=== PATIENT | female | born 1945 | race Caucasian/White ===

== ENCOUNTER → 2017-10-24 | Day surgery (SDC) | payer OTHER, MEDICARE ==
[2017-10-23 11:56] LABS: BASOPHILS % 0.6 % (0.0-1.0); EOSINOPHILS # (AUTO) 0.2 (0.0-0.4); HEMATOCRIT 38.2 % (34.2-44.1); LYMPHOCYTES # (AUTO) 1.3 (1.0-3.2); LYMPHOCYTES % 25.7 % (18.0-39.1); MEAN CORPUSCULAR HEMOGLOBIN 30.2 pg (28-32); MEAN CORPUSCULAR HGB CONC 31.4 g/dL (31-35); MEAN CORPUSCULAR VOLUME 96.2 fL (81-99); MONOCYTES # (AUTO) 0.5 (0.2-0.8); MONOCYTES % 10.6 % (4.4-11.3); NEUTROPHILS % 59.9 % (38.7-80.0); PLATELET COUNT 198 x10e3/uL (140-360); RED BLOOD COUNT 3.97 x10e6/uL (3.6-5.1); RED CELL DISTRIBUTION WIDTH 12.8 % (11.7-14.4)
[2017-10-23 12:17] LABS: INR 1.04; PROTHROMBIN TIME 12.8 seconds (11.9-14.5)
[2017-10-23 12:18] LABS: PARTIAL THROMBOPLASTIN TIME 27.3 seconds (23.8-35.5)
[2017-10-23 12:25] LABS: ALANINE AMINOTRANSFERASE 25 IU/L (0-55); ALBUMIN 3.8 g/dL (3.5-5.0); ALBUMIN/GLOBULIN RATIO 1.4 (0.8-2.0); ALKALINE PHOSPHATASE 152 IU/L (40-150); ANION GAP 13.6 mmol/L (8-16); BLOOD UREA NITROGEN 19 mg/dL (7-26); BUN/CREATININE RATIO 24 (6-25); CALCIUM 9.3 mg/dL (8.4-10.2); CARBON DIOXIDE 25 mmol/L (22-29); CHLORIDE 109 mmol/L (98-107); CREATININE, SERUM 0.78 mg/dL (0.57-1.11); EST GLOMERULAR FILTRATION RATE > 60 ML/MIN (60-); GLUCOSE 83 mg/dL (74-118); POTASSIUM 4.6 mmol/L (3.5-5.1); SODIUM 143 mmol/L (136-145)
--- NOTE | 2017-10-23 12:41 | Diagnostic Imaging Report ---
PROCEDURE: X-RAY CHEST, TWO VIEWS COMPARISON: Chest x-ray 11/28/16. INDICATIONS: PRE-OP FINDINGS: LUNGS: Stable diffuse hyperinflation. No mass, consolidations or edema. PLEURA: Bilateral apical pleural parenchymal thickening is stable. No effusions or pneumothorax. HEART \T\ MEDIASTINUM: The heart is within normal size-limits. Aorta ectasia and aortic calcifications are stable. BONES \T\ SOFT TISSUES: Diffusely demineralized. No focal osseous lesions. Surgical clips in the right upper quadrant are stable. CONCLUSION: Stable pulmonary hyperinflation consistent with small airways disease. No acute cardiopulmonary process. Dictated by: Ilene Carr M.D. on 10/23/2017 at 12:42 Electronically approved by: Ilene Carr M.D. on 10/23/2017 at 12:42
[~2017-10-24] MED LIST: ACETAMINOPHEN 1000 MG/100 ML IV ONE; BOTULINUM TOXIN TYPE A 100 UNIT VIAL IM ONE; CEFOXITIN SOD 1 GM VIAL ONE; CIPROFLOXACIN250 MG PO; DEXAMETHASONE SOD PHOS INJ 4 MG/ML VIAL ONE; FENTANYL CITRATE/PF 100MCG/2 ML INJ ONE; FERROUS SULFAT325 M1 PO; LIDOCAINE HCL 2% LOCAL INJ 5 ML SDV VIAL INJ ONE; MACROBID 100 M100 MG PO; MACRODANTIN100 MG PO; MEPERIDINE HCL INJ 50 MG/ML INJ ONE; MULTI-VITAMIN1 EACH PO; MYRBETRIQ50 MG PO; ONDANSETRON HCL INJ 2 MG/ML VIAL ONE; PANTOPRAZOLE SO40 MG PO; POTASSIUM CHLO20 ME1 PO; PRESERVISION T1 EACH PO; PROPOFOL IV EMULSION 10 MG/ML 20 ML VIAL ONE; SEVOFLURANE INHAL SOLN 250 ML PEN BTL ONE; SODIUM CHLORIDE 0.9% INJ 10 ML VIAL ONE; TOLTERODINE TART2 MG PO; TYLENOL # 31 EA PO; VESICARE5 MG PO; VIT B12 PO; VITAMIN C500 M1 PO; [UNRECOGNIZED DRUG - OTHER] INJ ONE
--- OUTSIDE RECORDS SUMMARY | 2017-10-24 08:22 | XMS REPORT ---
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 Allergies, Adverse Reactions, Alerts This patient has no known allergies or adverse reactions. Medications This patient has no known medications. Results Test Description Test Time Test Comments Text Results Atomic Results Result Comments CHEST 2 VIEWS [place] [address] Patient Name: ISAIAH MAURER MR #: [id number] : 1945 Age/Sex: 72/F Req # : [id number] Adm Physician: Ordered by: MARIANGEL FRAUSTO MD Report #: [id number] Location: OR Room/Bed: Procedure: [id number] DX/CHEST 2 VIEWS Exam Date: 10/23/17 Exam Time: 1150 REPORT STATUS: Signed PROCEDURE: X-RAY CHEST, TWO VIEWS COMPARISON: Chest x-ray 11/28/16. INDICATIONS: PRE-OP FINDINGS: LUNGS: Stable diffuse hyperinflation. No mass, consolidations or edema. PLEURA: Bilateral apical pleural parenchymal thickening is stable. No effusions or pneumothorax. HEART T MEDIASTINUM: The heart is within normal size-limits. Aorta ectasia and aortic calcifications are stable. BONES T SOFT TISSUES: Diffusely demineralized. No focal osseous lesions. Surgical clips in the right upper quadrant are stable. CONCLUSION: Stable pulmonary hyperinflation consistent with small airways disease. No acute cardiopulmonary process. Dictated by: Sierra Carr M.D. on 10/23/2017 at 12:42 Electronically approved by: Sierra Carr M.D. on 10/23/2017 at 12:42 Dictated By: SIERRA CARR MD 124 Transcribed By: WILLA on 10/23/17 1242 COPY TO: MARIANGEL FRAUSTO MD
--- NOTE | 2017-10-24 13:02 | Operative Report ---
DATE OF PROCEDURE: October 24, 2017 PREOPERATIVE DIAGNOSIS: Urinary urgency incontinence and chronic hemorrhagic cystitis. POSTOPERATIVE DIAGNOSIS: Urinary urgency incontinence and chronic hemorrhagic cystitis. OPERATION PERFORMED: Cystoscopy with injection of intravesical Botox 100 units. ANESTHESIA: General. INDICATIONS: This patient is a 72-year-old white female with a long history of urinary urgency incontinence. She was found to have hemorrhagic cystitis. In fact, a TURBT confirmed that the lesions in her bladder were severe chronic hemorrhagic cystitis rather than malignancy. The patient has failed to respond to anticholinergic agents, even a combination of Myrbetriq and Vesicare. The plan at this time is to proceed with injection of intravesical Botox. For further details, please refer to the history and physical. The procedure was done in the following fashion: DESCRIPTION OF PROCEDURE: The patient was taken to the operating room, placed under general anesthesia, dressed and prepped with Hibiclens in lithotomy position in the usual fashion. The 22-Cypriot Olympus cystoscope was inserted with the 30-degree oblique lens. Clear efflux was seen from both ureteral orifices. The bladder was trabeculated with some bladder diverticula identified as well. There were also some blood clots that were evacuated out of the bladder in view of her hemorrhagic cystitis, and you could see some various red lesions in her bladder compatible with her chronic hemorrhagic cystitis. One hundred units of Botox were diluted into 30 mL of bacteriostatic sterile saline. I used this to inject the bladder with 1-mL injections each using a Coloplast needle. Thirty injections were made, taking care to avoid injecting into diverticula and to avoid injecting the trigone. After 30 injections, the bladder was emptied using an Ellik to make sure any remaining blood clots were removed and the bladder emptied. The patient tolerated the procedure well and left the operating room in good condition. She will go home on Macrobid 100 mg p.o. twice daily, number 20. She will have a return appointment to see me again in 2 weeks. She will resume her other medications. Job#: [id number]
== END | disposition home or self-care (01) ==
LOC: OR 08:19
PROVIDERS: ATTEND Urology
PROC: 0TCB8ZZ Extirpation of Matter from Bladder, Via Natural or Artificial Opening Endoscopic (ICD-10-PCS; 2017-10-24)
PROC: 3E0K8GC Introduction of Other Therapeutic Substance into Genitourinary Tract, Via Natural or Artificial Opening Endoscopic (ICD-10-PCS; principal; 2017-10-24 10:30)
DX: N39.41 Urge incontinence (principal); N30.21 Other chronic cystitis with hematuria; N32.89 Other specified disorders of bladder; N32.3 Diverticulum of bladder; D41.4 Neoplasm of uncertain behavior of bladder; N81.89 Other female genital prolapse; D64.9 Anemia, unspecified; K27.7 Chronic peptic ulcer, site unspecified, without hemorrhage or perforation; B26.9 Mumps without complication; Z01.810 Encounter for preprocedural cardiovascular examination; Z01.812 Encounter for preprocedural laboratory examination; Z01.818 Encounter for other preprocedural examination
CPT/HCPCS: 36415; 52001; 52287; 71046; 80053; 85025; 85610; 85730; 93005; J0587; J0694; J1100; J2001; J2175; J2405

== ENCOUNTER → 2018-02-06 | Day surgery (SDC) | payer OTHER, MEDICARE ==
[2018-02-05 12:37] LABS: BASOPHILS % 0.5 % (0.0-1.0); EOSINOPHILS # (AUTO) 0.1 (0.0-0.4); HEMATOCRIT 33.5 % (34.2-44.1); HEMOGLOBIN 10.6 g/dL (12.0-16.0); MEAN CORPUSCULAR HEMOGLOBIN 29.7 pg (28-32); MEAN CORPUSCULAR HGB CONC 31.6 g/dL (31-35); MEAN CORPUSCULAR VOLUME 93.8 fL (81-99); MONOCYTES # (AUTO) 0.9 (0.2-0.8); MONOCYTES % 13.7 % (4.4-11.3); NEUTROPHILS # (AUTO) 4.3 (2.1-6.9); NEUTROPHILS % 68.2 % (38.7-80.0); PLATELET COUNT 189 x10e3/uL (140-360); RED BLOOD COUNT 3.57 x10e6/uL (3.6-5.1); RED CELL DISTRIBUTION WIDTH 15.6 % (11.7-14.4)
[2018-02-05 12:50] LABS: INR 1.14; PARTIAL THROMBOPLASTIN TIME 36.9 seconds (23.8-35.5); PROTHROMBIN TIME 13.7 seconds (11.9-14.5)
[2018-02-05 13:04] LABS: ALANINE AMINOTRANSFERASE 43 IU/L (0-55); ALBUMIN 3.2 g/dL (3.5-5.0); ALBUMIN/GLOBULIN RATIO 0.9 (0.8-2.0); ALKALINE PHOSPHATASE 169 IU/L (40-150); ANION GAP 15.3 mmol/L (8-16); BLOOD UREA NITROGEN 17 mg/dL (7-26); BUN/CREATININE RATIO 21 (6-25); CALCIUM 9.4 mg/dL (8.4-10.2); CARBON DIOXIDE 18 mmol/L (22-29); CHLORIDE 112 mmol/L (98-107); CREATININE, SERUM 0.81 mg/dL (0.57-1.11); EST GLOMERULAR FILTRATION RATE > 60 ML/MIN (60-); GLUCOSE 90 mg/dL (74-118); POTASSIUM 4.3 mmol/L (3.5-5.1); SODIUM 141 mmol/L (136-145)
[~2018-02-06] MED LIST changes: -ACETAMINOPHEN 1000 MG/100 ML IV ONE; -MEPERIDINE HCL INJ 50 MG/ML INJ ONE; -SODIUM CHLORIDE 0.9% INJ 10 ML VIAL ONE; -[UNRECOGNIZED DRUG - OTHER] INJ ONE
--- NOTE | 2018-02-06 14:38 | Operative Report ---
DATE OF PROCEDURE: February 06, 2018 PREOPERATIVE DIAGNOSIS: Urinary urgency incontinence. POSTOPERATIVE DIAGNOSIS: Urinary urgency incontinence. OPERATION PERFORMED: Cystoscopy with injection of intravesical Botox 200 units. ANESTHESIA: General. INDICATIONS: This patient is a 72-year-old white female with a long history of urinary urgency incontinence after insertion of some kind of sling for an anti-incontinence procedure. The patient had failed on anticholinergic agents. She had been given a trial of intravesical Botox 100 units and had a partial response. She is here today for an injection of intravesical Botox 200 units. For further details, please refer to the history and physical. The procedure was done in the following fashion. DESCRIPTION OF PROCEDURE: The patient was taken to the operating room and placed under general anesthesia, dressed and draped with Hibiclens in lithotomy position in the usual fashion. Cystourethroscopy was performed with a 25-Latvian Olympus cystoscope with the 30-degree oblique lens. Prior to starting the cystoscopy I had diluted 200 units of Botox into 30 mL of a bacteriostatic sterile saline. Initial examination of the bladder revealed that the bladder appeared chronically inflamed. Previous biopsies had been done on an earlier visit. The patient also had a small capacity bladder. The ureteral orifices were identified and care was taken to make these injections away from the ureteral orifices. The patient received a total of thirty injections of intravesical Botox with 200 units diluted into the 30 mL. Each injection was 1 mL injection. Once the procedure was completed, the bladder was emptied and cystoscope withdrawn. The patient tolerated procedure well and left the operating room in good condition. She will have return appointment to see me again in 2 weeks. She is aware that it takes about 7 to 10 days for the Botox to take effect and there is the possibility of going into urinary retention. She is being sent home on Macrobid 100 mg p.o. twice daily and will have return appointment to see me again in 2 weeks. Job#: [id number] TANNER
== END | disposition home or self-care (01) ==
LOC: OR 07:43
PROVIDERS: ATTEND Urology
DX: N39.41 Urge incontinence (principal); N30.21 Other chronic cystitis with hematuria; N81.11 Cystocele, midline; D64.9 Anemia, unspecified; N81.89 Other female genital prolapse; K27.7 Chronic peptic ulcer, site unspecified, without hemorrhage or perforation; K21.9 Gastro-esophageal reflux disease without esophagitis; Z01.810 Encounter for preprocedural cardiovascular examination; Z01.812 Encounter for preprocedural laboratory examination; Z01.818 Encounter for other preprocedural examination
CPT/HCPCS: 36415; 52287; 80053; 85025; 85610; 85730; 93005; J0587; J0694; J1100; J2001; J2405

== ENCOUNTER → 2018-05-08 | Day surgery (SDC) | payer OTHER, MEDICARE ==
[2018-05-05 14:39] LABS: BASOPHILS % 0.4 % (0.0-1.0); EOSINOPHILS # (AUTO) 0.1 (0.0-0.4); EOSINOPHILS % 1.8 % (0.0-6.0); HEMATOCRIT 36.5 % (34.2-44.1); HEMOGLOBIN 11.6 g/dL (12.0-16.0); LYMPHOCYTES % 12.9 % (18.0-39.1); MEAN CORPUSCULAR HEMOGLOBIN 29.7 pg (28-32); MEAN CORPUSCULAR HGB CONC 31.8 g/dL (31-35); MEAN CORPUSCULAR VOLUME 93.6 fL (81-99); MONOCYTES # (AUTO) 0.6 (0.2-0.8); MONOCYTES % 7.5 % (4.4-11.3); NEUTROPHILS # (AUTO) 6.1 (2.1-6.9); PLATELET COUNT 208 x10e3/uL (140-360); RED CELL DISTRIBUTION WIDTH 14.3 % (11.7-14.4)
[2018-05-05 14:51] LABS: INR 0.93; PROTHROMBIN TIME 13.3 seconds (11.9-14.5)
[2018-05-05 14:56] LABS: ALANINE AMINOTRANSFERASE 66 IU/L (0-55); ALBUMIN 3.2 g/dL (3.5-5.0); ALBUMIN/GLOBULIN RATIO 1.1 (0.8-2.0); ALKALINE PHOSPHATASE 186 IU/L (40-150); ANION GAP 12.6 mmol/L (8-16); BLOOD UREA NITROGEN 15 mg/dL (7-26); BUN/CREATININE RATIO 20 (6-25); CARBON DIOXIDE 22 mmol/L (22-29); CHLORIDE 108 mmol/L (98-107); CREATININE, SERUM 0.76 mg/dL (0.57-1.11); EST GLOMERULAR FILTRATION RATE > 60 ML/MIN (60-); GLUCOSE 90 mg/dL (74-118); POTASSIUM 3.6 mmol/L (3.5-5.1); SODIUM 139 mmol/L (136-145)
[~2018-05-08] MED LIST changes: +KETOROLAC TROMETHAMINE 30 MG/ML VIAL ONE; +MIDAZOLAM HCL 2 MG/2 ML VIAL ONE
[2018-05-08 15:40] VITALS: BP 155/83
--- NOTE | 2018-05-08 15:58 | Operative Report ---
DATE OF PROCEDURE: May 08, 2018 PREOPERATIVE DIAGNOSIS: Urinary urgency incontinence. POSTOPERATIVE DIAGNOSIS: Urinary urgency incontinence. OPERATION PERFORMED: Cystoscopy with injection of intravesical Botox 300 units. ANESTHESIA: General. INDICATIONS: This patient is a 72-year-old white female with a long history of urinary urgency incontinence after a sling procedure with mesh. The patient has also had problems with chronic cystitis with hematuria. The patient has failed on anticholinergics, and she has failed on Myrbetriq. She had a slight response to Botox 100 units. She had a partial response to Botox 200 units. She is now here to try intravesical Botox 300 units for treatment of her urinary urgency incontinence. The procedure was done in the following fashion. DESCRIPTION OF PROCEDURE: The patient was taken to the operating room and placed under general anesthesia, dressed and draped with Hibiclens in lithotomy position in the usual fashion. The patient has a moderate rectocele present. The 25-Georgian Olympus cystoscope was inserted with the 30-degree oblique lens. Clear efflux was seen from both ureteral orifices. The bladder mucosa was moderately inflamed because she has a history of chronic cystitis with hematuria. The patient had been given Mefoxin 1 gram IV tester electronic scale to the operating room. Prior to beginning the procedure, I had diluted 300 units of Botox into 30 mL of bacteriostatic sterile saline. After inspecting the bladder, I then used a Coloplast needle to inject 30 injections into the bladder. Each injection was 1 mL, and I did this along the lateral rivera, on the right lateral wall and the left lateral wall, and on the floor of the bladder, taking care to avoid injury to the trigone. After 30 injections, the bladder was emptied and the cystoscope withdrawn. The patient tolerated the procedure well and left the operating room in good condition. She will go home on Macrobid 100 mg p.o. twice daily for a week and will have a return appointment to see me again in 2 weeks. Job#: [id number] JENNIFER
== END | disposition home or self-care (01) ==
LOC: OR 07:54
PROVIDERS: ATTEND Urology
DX: N39.41 Urge incontinence (principal); N30.21 Other chronic cystitis with hematuria; K25.7 Chronic gastric ulcer without hemorrhage or perforation; K27.7 Chronic peptic ulcer, site unspecified, without hemorrhage or perforation
CPT/HCPCS: 36415; 52287; 80053; 85025; 85610; 85730; A4467; J0587; J0694; J1100; J1885; J2001; J2250; J2405; J2704

== ENCOUNTER → 2018-08-21 | Day surgery (SDC) | payer OTHER, MEDICARE ==
[2018-08-14 11:29] LABS: BASOPHILS % 0.9 % (0.0-1.0); EOSINOPHILS # (AUTO) 0.1 (0.0-0.4); EOSINOPHILS % 2.6 % (0.0-6.0); HEMOGLOBIN 12.3 g/dL (12.0-16.0); LYMPHOCYTES # (AUTO) 1.1 (1.0-3.2); LYMPHOCYTES % 25.6 % (18.0-39.1); MEAN CORPUSCULAR HEMOGLOBIN 29.5 pg (28-32); MEAN CORPUSCULAR HGB CONC 31.5 g/dL (31-35); MEAN CORPUSCULAR VOLUME 93.5 fL (81-99); MONOCYTES # (AUTO) 0.4 (0.2-0.8); MONOCYTES % 9.3 % (4.4-11.3); NEUTROPHILS # (AUTO) 2.6 (2.1-6.9); NEUTROPHILS % 61.4 % (38.7-80.0); PLATELET COUNT 252 x10e3/uL (140-360); RED BLOOD COUNT 4.17 x10e6/uL (3.6-5.1); RED CELL DISTRIBUTION WIDTH 13.7 % (11.7-14.4)
[2018-08-14 11:57] LABS: INR 0.91; PROTHROMBIN TIME 13.1 seconds (11.9-14.5)
[2018-08-14 11:58] LABS: PARTIAL THROMBOPLASTIN TIME 29.8 seconds (23.8-35.5)
--- NOTE | 2018-08-14 12:12 | Diagnostic Imaging Report ---
EXAMINATION: CHEST 2 VIEWS INDICATION: Pre-procedural chest radiograph COMPARISON: None FINDINGS: TUBES and LINES: None. LUNGS: There is biapical pleural-parenchymal opacity consistent with prior granulomatous disease. No evidence of pneumonia or pulmonary edema. PLEURA: No pleural effusion or pneumothorax. HEART AND MEDIASTINUM: The cardiomediastinal silhouette is unremarkable. Atherosclerotic calcification of the aortic arch. BONES AND SOFT TISSUES: Diffuse osteopenia. No acute radiographic abnormality. UPPER ABDOMEN: No free air under the diaphragm. Status post cholecystectomy. IMPRESSION: No acute thoracic abnormality. Signed by: Dr. Lisa Lopez MD on 08/14/2018 12:09 PM
[2018-08-14 12:18] LABS: ALANINE AMINOTRANSFERASE 14 IU/L (0-55); ALBUMIN 3.9 g/dL (3.5-5.0); ALBUMIN/GLOBULIN RATIO 1.4 (0.8-2.0); ALKALINE PHOSPHATASE 94 IU/L (40-150); ANION GAP 13.9 mmol/L (8-16); BLOOD UREA NITROGEN 14 mg/dL (7-26); BUN/CREATININE RATIO 19 (6-25); CALCIUM 9.4 mg/dL (8.4-10.2); CARBON DIOXIDE 23 mmol/L (22-29); CHLORIDE 109 mmol/L (98-107); CREATININE, SERUM 0.75 mg/dL (0.57-1.11); EST GLOMERULAR FILTRATION RATE > 60 ML/MIN (60-); GLUCOSE 66 mg/dL (74-118); POTASSIUM 3.9 mmol/L (3.5-5.1); SODIUM 142 mmol/L (136-145)
[~2018-08-21] MED LIST changes: +ACETAMINOPHEN 325 MG TAB ONE; -FENTANYL CITRATE/PF 100MCG/2 ML INJ ONE; +IRON PO; +LABETALOL HCL 20 MG/4 ML SYRINGE IV ONE; -MIDAZOLAM HCL 2 MG/2 ML VIAL ONE; -ONDANSETRON HCL INJ 2 MG/ML VIAL ONE; +ONDANSETRON HCL INJ 2MG/ML 2ML 2 MG/ML VIAL ONE; +POTASSIUM PO; +SODIUM CHLORIDE 0.9% 50ML 0 ML ONE; +VIT C PO
[2018-08-21 12:46] VITALS: BP 167/92
--- NOTE | 2018-08-22 05:01 | Operative Report ---
DATE OF PROCEDURE: 08/21/2018 SURGEON: Hugo Isabel MD PREOPERATIVE DIAGNOSES: 1. Urinary urgency incontinence. 2. Chronic cystitis with hematuria. POSTOPERATIVE DIAGNOSES: 1. Urinary urgency incontinence. 2. Chronic cystitis with hematuria. OPERATION PERFORMED: Cystoscopy with injection of intravascular Botox 400 units. ANESTHESIA: General. INDICATIONS: This patient is a 72-year-old white female with a long history of hemorrhagic cystitis and she has a history of a small contracted bladder. Her urgency incontinence did not respond to VESIcare or Myrbetriq or other anticholinergic agents. She was then given a trial of Botox 100 units, then Botox 200 units, then Botox 300 units, and now she is going up to the maximum allowed, which is Botox 400 units to see how much help this gives her. Botox has seemed to help a little bit. I am not going to the maximum dosage. For further details, please refer to the history and physical. The procedure was done in the following fashion. DESCRIPTION OF PROCEDURE: The patient was taken to the operating room, placed under general anesthesia and dressed and draped with hibiclens in lithotomy position in the usual fashion. The 22-Yoruba Olympus cystoscope was inserted with a 30-degree oblique lens and I could see that she had evidence of a cystocele. She also had evidence of some severe bladder trabeculation and some bladder diverticulum formation as well. There were bleeding areas present from her chronic hemorrhagic cystitis. Prior to beginning the procedure, I had mixed Botox 400 units into 30 mL of sterile injectable bacteriostatic saline. Using a Coloplast needle, I made 30 injections in the bladder taking care to avoid injecting the bladder diverticulum and to avoid injecting the trigone, and I got a good scattering on both sides of the bladder and in the floor of the bladder. Each injection was a 1 mL injection. After the 30 mL were completely injected into 30 injections, the bladder was emptied and cystoscope was withdrawn. The patient tolerated the procedure well and left the operating room in good condition. She will have a return appointment to see me again in 2 weeks. Hugo Isabel MD [place]/MODL /[id number] YUDY
== END | disposition home or self-care (01) ==
LOC: OR 08:30
PROVIDERS: ATTEND Urology
DX: N39.41 Urge incontinence (principal); N81.11 Cystocele, midline; N30.21 Other chronic cystitis with hematuria; N81.89 Other female genital prolapse; D64.9 Anemia, unspecified; K27.7 Chronic peptic ulcer, site unspecified, without hemorrhage or perforation; Z80.0 Family history of malignant neoplasm of digestive organs; Z82.49 Family history of ischemic heart disease and other diseases of the circulatory system; Z01.810 Encounter for preprocedural cardiovascular examination; Z01.812 Encounter for preprocedural laboratory examination; Z01.811 Encounter for preprocedural respiratory examination
CPT/HCPCS: 36415; 52287; 71046; 80053; 85025; 85610; 85730; 93005; A4467; J0587; J0694; J1100; J1885; J2001; J2405; J2704